=== PATIENT | male | born 1975 | race African-American/Black ===

== ENCOUNTER 2024-03-13 13:48 | Inpatient (IN) | payer OTHER, SELFPAY ==
[2024-03-13 15:00] VITALS: BP 103/84; PULSE 92; RESP 18; TEMP 36.3; O2SAT 99
[2024-03-13 15:26] VITALS: BMI 21.4
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
--- OUTSIDE RECORDS SUMMARY | 2024-03-13 16:11 | XMS_ITS | Clinical Summary ---
Author Organization [facility] Address [address] [place] [phone] Phone Care Team Providers Care President [place] Name Role Phone Physician, No Pcp Primary Care Provider Unavaila ble Allergies Active Allergy Reactions Criticality Noted Date Comments Comfort Pollen Sneezing 03/10/2024 Medications Medication Sig Dispensed Refills Start Date End Date Status divalproex (DEPAKOTE ER) 500 mg 24 hr tablet Take 1 tablet (500 mg total) by mouth at bedtime. at bedtime. 10/13/2023 Active hydrOXYzine pamoate (VISTARIL) 25 mg capsule Take 1 capsule (25 mg total) by mouth 3 (three) times a day if needed for anxiety. Active QUEtiapine (SEROquel) 25 mg tablet Take 1 tablet (25 mg total) by mouth 1 (one) time each day. Active Encounters Date Type Department Care Team Description 03/10/2024 11:01 AM EST - 03/13/2024 1:38 PM [facility] [address] [place] [phone] Eboni Robertson DO Patel, Parth B, MD Dunbar, Kevin F, MD Millay, Scot A, MD Cauchon, Matthew C, DO Durkin, Louis J, MD Kenton, Mark A, MD Severe mood disorder with psychotic features (CMS/HCC) (Primary Dx) Discharge Disposition: [facility] 01/05/2024 3:07 AM EST - 01/05/2024 1:48 PM [facility] [address] [place] [phone] Nile Hernandez MD Vatrenko, Konstantin, MD Current episode of major depressive disorder without prior episode, unspecified depression episode severity (Primary Dx); Anxiety disorder, unspecified type; Substance use disorder Discharge Disposition: Home or Self Care from Last 3 Months Medical History Medical History Date Comments Major depressive disorder, recurrent episode, mo derate (CMS/HCC) per EMR Nasal bone fx-closed 2019 per em r Social History Tobacco Use Types Packs/Day Years Used Date Smoking Tobacco: Never Assessed Sex and Gender Information Value Date Recorded Sex Assigned at Not on file Gender Identity Not on file Sexual Orientation Not on file Job Start Date Occupation Industry Not on file Not on file Not on file Obstetrics History Last Filed Vital Signs Vital Sign Reading Time Taken Comments Blood Pressure 97/56 03/13/2024 1:11 PM EST Pulse 66 03/13/2024 1:11 PM EST Temperature 36.3 ??C (97.3 ??F) 03/13/2024 1:11 PM ES T Respiratory Rate 16 03/13/2024 1:11 PM EST Oxygen Saturation 100% 03/13/2024 1:11 PM EST Inhaled Oxygen Concentration - - Weight 81.6 kg (180 lb) 03/10/2024 10:58 AM EST Height 182.9 cm (6') 03/10/2024 10:58 AM EST Body Mass Index 24.41 03/10/2024 10:58 AM EST Plan of Treatment Health Maintenance Due Date Last Done Comments DTaP,Tdap,and Td Vaccines (1 - Tdap) 02/07/1996 Hepatitis B Vaccines (1 of 3 - 19+ 3-dose series) 02/07/1996 Cholesterol Screening (Lipid Panel) 03/14/2023 11/21/2013 Colorectal Cancer Screening: Colonoscopy 03/14/2023 Depression Screening 03/14/2023 06/08/2021 HIV Screening 03/14/2023 Hepatitis C Screening 03/14/2023 Social Influencers of Health Screening 03/14/2023 COVID-19 Vaccine (2023-2 5 season) 2023 12/14/2021, 02/17/2021, 10/29/2020 Influenza Vaccine (#1) 2023 02/21/2014 HIB Vaccines Aged Out No longer eligi ble based on patient's age to complete this topic HPV Vaccines Aged Out No longer eligi ble based on patient's age to complete this topic Hepatitis A Vaccines Aged Out No long er eligible based on patient's age to complete this topic IPV Vaccines Aged Out No longer eligi ble based on patient's age to complete this topic MMR Vaccines Aged Out No longer eligi ble based on patient's age to complete this topic Meningococcal ACWY Vaccine Aged Out N o longer eligible based on patient's age to complete this topic Pneumococcal Vaccine: Pediatrics (0 to 5 Years) and At-Risk Patients (6 to 64 Years) Aged Out No longer eligible b ased on patient's age to complete this topic RSV Immunization Patients Under 20 months Aged Out No longer eligible b ased on patient's age to complete this topic Varicella Vaccines Aged Out No longer eligible based on patient's age to complete this topic Procedures Procedure Name Priority Date/Time Associated Diagnosis Comments ECG 12-LEAD STAT 03/10/2024 11:55 AM EST CBC WITH AUTO DIFFERENTIAL STAT 03/10/2024 11:26 AM EST METHADONE SCREEN, URINE STAT 03/10/2024 11:26 AM EST PHENCYCLIDINE, URINE STAT 03/10/2024 11:26 AM EST BUPRENORPHINE SCREEN, URINE STAT 03/10/2024 11:26 AM EST DRUG ABUSE SCREEN 8A PANEL, URINE STAT 03/10/2024 11:26 AM EST SALICYLATE LEVEL STAT 03/10/2024 11:2 6 AM EST ACETAMINOPHEN LEVEL STAT 03/10/2024 1 1:26 AM EST ETHANOL STAT 03/10/2024 11:26 AM EST COMPREHENSIVE METABOLIC PANEL STAT 03/10/2024 11:26 AM EST CBC AND DIFFERENTIAL STAT 03/10/2024 11:26 AM EST RAPID [id number] SCREENING, MOLECULAR STAT 01/05/2024 11:06 AM EST TIGER TOP URINE TUBE Routine 01/05/2024 5:07 AM EST EXTRA TUBES Routine 01/05/2024 5:07 AM EST METHADONE SCREEN, URINE STAT 01/05/2024 5:07 AM EST PHENCYCLIDINE, URINE STAT 01/05/2024 5:07 AM EST BUPRENORPHINE SCREEN, URINE STAT 01/05/2024 5:07 AM EST DRUG ABUSE SCREEN 8A PANEL, URINE STAT 01/05/2024 5:07 AM EST ECG 12-LEAD STAT 01/05/2024 4:25 AM EST CBC WITH AUTO DIFFERENTIAL STAT 01/05/2024 4:25 AM EST SALICYLATE LEVEL STAT 01/05/2024 4:25 AM EST ACETAMINOPHEN LEVEL STAT 01/05/2024 4 :25 AM EST ETHANOL STAT 01/05/2024 4:25 AM EST COMPREHENSIVE METABOLIC PANEL STAT 01/05/2024 4:25 AM EST CBC AND DIFFERENTIAL STAT 01/05/2024 4:25 AM EST ECG ANNOTATED 01/05/2024 from Last 3 Months Results * ECG 12 lead (03/10/2024 11:55 AM EST) Only the most recent of2 resultswithin the time period is included. Ventricular Rate ECG 84 BPM GEMUSE Atrial Rate 84 BPM GEMUSE P-R Interval 144 ms GEMUSE QRS Duration 76 ms GEMUSE Q-T Interval 380 ms GEMUSE QTc 449 ms GEMUSE P Wave [place] 83 degrees GEMUSE R [place] 71 degrees GEMUSE T [place] 57 degrees GEMUSE ECG Interpretation Normal sinus rhythm Right atrial enlargement When compared with ECG of 05-JAN-2024 04:25, No significant change was found Confirmed by CHRISTINA SU ([id number]) on 03/11/2024 8:40:37 PM GEMUSE 03/10/2024 11:5 5 AM EST 03/11/2024 8:40 PM EST Eboni Robertson DO ECG ORDERABLES GEMUSE * (ABNORMAL) Drug abuse screen 8a panel, urine (03/10/2024 11:26 AM EST) Only the most recent of2 resultswithin the time period is included. Amphetamine Screen, Ur Negative Negative LAB CHEMISTRY METHOD 5 12:25 PM [facility] Comment:Certain OTC medicati ons containing ephedrine, phenylephrine, pseudoephedrine and phenylpropanolamine can cause false positive results. Barbiturate Screen, Ur Negative Negative LAB CHEMISTRY METHOD 5 12:25 PM [facility] Benzodiazepine Screen, Ur Negative Negative LAB CHEMISTRY METHOD 5 12:25 PM [facility] Cocaine Screen, Ur Positive(A ) Negative LAB CHEMISTRY METHOD 5 12:25 PM [facility] Opiate Screen, Ur Negative Negative LAB CHEMISTRY METHOD 5 12:25 PM [facility] Cannabinoid (THC) Screen, Ur Positive(A ) Negative LAB CHEMISTRY METHOD 5 12:25 PM [facility] Comment:Specimens from patie nts taking pantoprazole sodium (Protonix) have been shown to produce false positive results. Oxycodone Screen, Ur Negative Negative LAB CHEMISTRY METHOD 5 12:25 PM [facility] Fentanyl, Ur Negative Negative LAB CHEMISTRY METHOD 5 12:25 PM [facility] Urine Urine specimen obtained by clean catch procedure / Unknown Non-blood Collection / Unknown 03/10/2024 11:26 AM EST 03/10/2024 11:57 AM EST Narrative [facility] - 03/10/2024 12:25 PM EST Assay cutoffs: Amphetamines ? 1000 ng/mL Barbiturates ?200 ng/mL Benzodiazepines ?? 200 ng/mL Cocaine ? 300 ng/mL Fentanyl ?1 ng/mL Opiates ? 300 ng/mL Oxycodone ? 100 ng/mL THC ?50 ng/mL Semi-quantitative assay for screening purposes only. Unconfirmed screening result should not be used for non-medical purposes. *ALTERNATE METHOD CONFIRMATION DONE UPON REQUEST ONLY* Eboni Robertson DO LAB URINE ORDERAB LES Performing Organization Address [facility] de Phone Number [facility] [address] [place] [address], * Buprenorphine screen, urine (03/10/2024 11:26 AM EST) Only the most recent of2 resultswithin the time period is included. Buprenorphine Screen Urine Negative Negative LAB CHEMISTRY METHOD 03/10/2024 12:25 PM EST [facility] Urine Urine specimen obtained by clean catch procedure / Unknown Non-blood Collection / Unknown 03/10/2024 11:26 AM EST 03/10/2024 11:57 AM EST Narrative [facility] - 03/10/2024 12:25 PM EST Assay cutoff 5 ng/mL Semi-quantitative assay for screening purposes only. Unconfirmed screening result should not be used for non-medical purposes. *ALTERNATE METHOD CONFIRMATION DONE UPON REQUEST ONLY* Eboni Robertson DO LAB URINE ORDERAB LES Performing Organization Address [facility]/ZIP Co de Phone Number [facility] [address] [place] [address], * Methadone, urine (03/10/2024 11:26 AM EST) Only the most recent of2 resultswithin the time period is included. [facility] Methadone Screen, Urine Negative Negative LAB CHEMISTRY METHOD 03/10/2024 12:25 PM [facility] Comment: Assay cutoff 300 ng/mL Semi-quantitative assay for screening purposes only. Unconfirmed screening result should not be used for non-medical purposes. *ALTERNATE METHOD CONFIRMATION DONE UPON REQUEST ONLY* Urine Urine specimen obtained by clean catch procedure / Unknown Non-blood Collection / Unknown 03/10/2024 11:26 AM EST 03/10/2024 11:57 AM EST Eboni Robertson DO LAB URINE ORDERAB LES [facility] [address] [place] [address], [place] [phone] * (ABNORMAL) CBC auto differential (03/10/2024 11:26 AM EST) Only the most recent of2 resultswithin the time period is included. [facility] WBC 8.5 4.8 - 10.8 K/Health system LAB HEMETOLOGY METHOD 03/10/2024 12:32 PM [facility] RBC 4.20(L) 4.50 - 5.50 M/Health system LAB HEMETOLOGY METHOD 03/10/2024 12:32 PM [facility] Hemoglobin 12.9(L) 13.5 - 17.5 g/dL LAB HEMETOLOGY METHOD 03/10/2024 12:32 PM [facility] Hematocrit 38.9(L) 42.0 - 54.0 % LAB HEMETOLOGY METHOD 03/10/2024 12:32 PM [facility] MCV 93.7 79.0 - 98.0 FL LAB HEMETOLOGY METHOD 03/10/2024 12:32 PM [facility] MCH 31.1 27.0 - 32.0 pcg LAB HEMETOLOGY METHOD 03/10/2024 12:32 PM [facility] MCHC 33.2 32.0 - 37.0 g/dL LAB HEMETOLOGY METHOD 03/10/2024 12:32 PM [facility] RDW 13.3 11.0 - 15.0 % LAB HEMETOLOGY METHOD 03/10/2024 12:32 PM [facility] Platelets 186 130 - 400 K/mcL LAB HEMETOLOGY METHOD 03/10/2024 12:32 PM [facility] MPV 10.3 7.0 - 11.0 FL LAB HEMETOLOGY METHOD 03/10/2024 12:32 PM [facility] NRBC 0.0 <1.0 % LAB HEMETOLOGY METHOD 03/10/2024 12:32 PM [facility] NRBC Absolute 0.00 <0.10 K/mcL LAB HEMETOLOGY METHOD 03/10/2024 12:32 PM [facility] Neutrophils Relative 78.9 % LAB HEMETOLOGY METHOD 03/10/2024 12:32 PM [facility] Lymphocytes Relative 15.0 % LAB HEMETOLOGY METHOD 03/10/2024 12:32 PM [facility] Monocytes Relative 4.6 % LAB HEMETOLOGY METHOD 03/10/2024 12:32 PM [facility] Eosinophils Relative 0.7 % LAB HEMETOLOGY METHOD 03/10/2024 12:32 PM [facility] Basophils Relative 0.6 % LAB HEMETOLOGY METHOD 03/10/2024 12:32 PM [facility] Immature Granulocytes Relative 0.2 % LAB HEMETOLOGY METHOD 03/10/2024 12:32 PM EST [facility] Neutrophils Absolute 6.73 1.50 - 7.00 K/Health system LAB HEMETOLOGY METHOD 03/10/2024 12:32 PM EST [facility] Lymphocytes Absolute 1.28 1.00 - 5.00 K/mcL LAB HEMETOLOGY METHOD 03/10/2024 12:32 PM [facility] Monocytes Absolute 0.39 0.20 - 1.00 K/mcL LAB HEMETOLOGY METHOD 03/10/2024 12:32 PM EST [facility] Eosinophils Absolute 0.06 0.00 - 0.50 K/mcL LAB HEMETOLOGY METHOD 03/10/2024 12:32 PM [facility] Basophils Absolute 0.05 0.00 - 0.20 K/mcL LAB HEMETOLOGY METHOD 03/10/2024 12:32 PM [facility] Immature Granulocytes Absolute 0.02 0.00 - 0.03 K/Health system LAB HEMETOLOGY METHOD 03/10/2024 12:32 PM [facility] Blood Venous blood specimen / Unknown Venipuncture / Unknown 03/10/2024 11:26 AM EST 03/10/2024 11:57 AM EST Eboni Armendariz Robertson DO LAB BLOOD ORDERAB LES [facility] [address] [place] [address], * Phencyclidine, urine (03/10/2024 11:26 AM EST) Only the most recent of2 resultswithin the time period is included. PCP Scrn, Ur Negative Negative LAB CHEMISTRY METHOD 03/10/2024 12:25 PM [facility] Comment: Assay cutoff 25 ng/mL Semi-quantitative assay for screening purposes only. Unconfirmed screening result should not be used for non-medical purposes. *ALTERNATE METHOD CONFIRMATION DONE UPON REQUEST ONLY* Urine Urine specimen obtained by clean catch procedure / Unknown Non-blood Collection / Unknown 03/10/2024 11:26 AM EST 03/10/2024 11:57 AM EST [facility] URINE ORDERAB LES Performing Organization Address City/[facility]/ZIP Co de Phone Number [facility] [address] [place] [address], * Ethanol (03/10/2024 11:26 AM EST) Only the most recent of2 resultswithin the time period is included. Ethanol Level <3 0 - 10 mg/dL LAB CHEMISTRY METHOD 03/10/2024 12:25 PM EST [facility] Blood Venous blood specimen / Unknown Venipuncture / Unknown 03/10/2024 11:26 AM EST 03/10/2024 11:57 AM EST [facility] BLOOD ORDERAB LES Performing Organization Address [facility] de Phone Number [facility] [address] [place] [address], * (ABNORMAL) Acetaminophen level (03/10/2024 11:26 AM EST) Only the most recent of2 resultswithin the time period is included. Acetaminophen Level <2.0(L) 10.0 - 30.0 mcg/mL LAB CHEMISTRY METHOD 03/10/2024 12:38 PM EST [facility] Blood Venous blood specimen / Unknown Venipuncture / Unknown 03/10/2024 11:26 AM EST 03/10/2024 11:57 AM EST [facility] BLOOD ORDERAB LES Performing Organization Address [facility] Co de Phone Number [facility] [address] [place] [address], * (ABNORMAL) Salicylate level (03/10/2024 11:26 AM EST) Only the most recent of2 resultswithin the time period is included. Pathologist [facility] Salicylate Level 1.8(L) 2.0 - 29.0 mg/dL LAB CHEMISTRY METHOD 03/10/2024 12:25 PM [facility] Blood Venous blood specimen / Unknown Venipuncture / Unknown 03/10/2024 11:26 AM EST 03/10/2024 11:57 AM EST Eboni Robertson DO LAB BLOOD ORDERAB LES [facility] [address] [place] [address], * (ABNORMAL) Comprehensive metabolic panel (03/10/2024 11:26 AM EST) Only the most recent of2 resultswithin the time period is included. [facility] Sodium 136 133 - 145 mmol/L LAB CHEMISTRY METHOD 03/10/2024 1:02 PM [facility] Potassium 4.1 3.5 - 5.5 mmol/L LAB CHEMISTRY METHOD 03/10/2024 1:02 PM [facility] Chloride 106 96 - 110 mmol/L LAB CHEMISTRY METHOD 03/10/2024 1:02 PM [facility] CO2 26 21 - 32 mmol/L LAB CHEMISTRY METHOD 03/10/2024 1:02 PM [facility] Anion Gap 4 3 - 11 LAB CHEMISTRY METHOD 03/10/2024 1:02 PM [facility] Glucose 116(H) 70 - 100 mg/dL LAB CHEMISTRY METHOD 03/10/2024 1:02 PM [facility] BUN 30(H) 5 - 25 mg/dL LAB CHEMISTRY METHOD 03/10/2024 1:02 PM [facility] Comment:Results verified by repeat testing Creatinine 1.31(H) 0.70 - 1.30 mg/dL LAB CHEMISTRY METHOD 03/10/2024 1:02 PM [facility] eGFR 68 >=60 mL/min/1. 73m2 LAB CHEMISTRY METHOD 03/10/2024 1:02 PM [facility] Comment:Calculation based on the??Chronic Kidney Disease Epidemiology Collaboration (CKD-EPI) equation refit??without adjustment for race. BUN/Creatinine Ratio 22.9 LAB CHEMISTRY METHOD 03/10/2024 1:02 PM [facility] Calcium 8.8 8.5 - 10.5 mg/dL LAB CHEMISTRY METHOD 03/10/2024 1:02 PM [facility] AST (SGOT) 23 10 - 42 unit/L LAB CHEMISTRY METHOD 03/10/2024 1:02 PM [facility] ALT (SGPT) 27 10 - 60 unit/L LAB CHEMISTRY METHOD 03/10/2024 1:02 PM [facility] Alkaline Phosphatase 66 42 - 121 unit/L LAB CHEMISTRY METHOD 03/10/2024 1:02 PM [facility] Total Protein 7.1 6.0 - 8.0 g/dL LAB CHEMISTRY METHOD 03/10/2024 1:02 PM [facility] Albumin 4.3 3.2 - 5.0 g/dL LAB CHEMISTRY METHOD 03/10/2024 1:02 PM [facility] Total Bilirubin 0.5 0.0 - 1.4 mg/dL LAB CHEMISTRY METHOD 03/10/2024 1:02 PM [facility] Blood Venous blood specimen / Unknown Venipuncture / Unknown 03/10/2024 11:26 AM EST 03/10/2024 11:57 AM EST Eboni Robertson DO LAB BLOOD ORDERAB LES [facility] [address] [place] [address], * Rapid [id number], molecular (01/05/2024 11:06 AM EST) [facility] SARS-COV-2 Screen Not Detected Not Detected METHOD [id number] 01/05/2024 11:33 AM EST [facility] Swab Both anterior nares / Unknown Non-blood Collection / Unknown 01/05/2024 11:06 AM EST 01/05/2024 11:08 AM EST Tommy Pham MD LAB MICROBIOLOGY - GENERAL ORDERABLES Performing Organization Address City/[facility]/ZIP Co de Phone Number [facility] [address] [place] [address], * Carnation top urine tube (01/05/2024 5:07 AM EST) [facility] Extra Tube Hold for add-ons. 01/05/2024 7:01 AM EST [facility] Comment:Auto resulted. Urine Urine specimen obtained by clean catch procedure / Unknown 01/05/2024 5:07 AM EST 01/05/2024 5:30 AM EST Nile Hernandez MD LAB URINE ORDERABLES Performing Organization Address City/[facility]/ZIP Co de Phone Number [facility] [address] [place] [address], * ECG-Annotated (01/05/2024) Provider Onmalina CRESPO ECG ORDERABLES from Last 3 Months Care Teams President [place] Relationship Specialty Start Date End Date Physician, No Pcp PCP - General 01/05/24
--- OUTSIDE RECORDS SUMMARY | 2024-03-13 16:11 | XMS_ITS | Clinical Summary ---
Author Organization [facility] Address [address] [place] [address] Care Team Providers Care Forms Examiner Name Role Phone Laine Melvin Primary Care Provider [phone] Source Comments PLEASE NOTE, if this patient is a minor, it may be UNLAWFUL to discuss sensitive information that is contained in these records (such as FAMILY PLANNING, MENTAL HEALTH or SUBSTANCE ABUSE) with the minor patient's parent or other person without the patient's specific authorization.[facility] Allergies No known active allergies Medications sertraline (ZOLOFT) 25 mg tabletIndication s:Anxiety Take 1 Tablet by mouth once daily 30 Tablet 1 06/08/2021 Active Active Problems Problem Noted Date Diagnosed Date History of suicidal ideation 05/11/2022 Overview (05/11/2022): [facility] 04/2022 Anxiety 06/08/2021 Crushing injury of right index finger 08/08/2017 Overview (08/08/2017): [facility] Diagnostic Imaging Department July Nondisplaced fracture at the tuft of the index finger distal phalange with overlying soft tissue swelling. trauma 07/17/2017 Overview (07/17/2017): [facility]-07/12/17 FINDINGS: Visualized portion of the brain is better evaluated on the dedicated CT head.. There is mild straightening of the cervical spine. The vertebral body heights are maintained. No acute fracture or subluxation is identified. Normal alignment of the facet joints. No prevertebral soft tissue swelling. Slight increased density in the ligaments at C1-C2 likely related to mild calcification. There is normal alignment of the lateral masses of C1 with the occipital condyles and the lateral masses of C2. At C3-C4, mild asymmetric disc bulging to the right. Mild bilateral neural foraminal narrowing at C5-C6. Subtle ligamentous calcification along the posterior most aspect of C5 vertebral body. The epiglottis is within normal limits. No cervical lymphadenopathy. Subcentimeter bilateral cervical lymph nodes. IMPRESSION: No acute fracture or subluxation of the cervical spine. [facility]-facial trauma IMPRESSION: Comminuted fracture of bilateral nasal bones, slightly more displaced on the right. Surrounding soft tissue swelling. [facility]-ct brain IMPRESSION: No acute intracranial hemorrhage. Mild parenchymal volume loss and nonspecific white matter changes. Depression 02/21/2014 Chronic low back pain 02/21/2014 Encounters Date Type Department Care Team Description 02/20/2024 Interim Notes [address] [place] [address] Elmira Smith MA from Last 3 Months Immunizations Name Administration Dates Next Due INFLUENZA, SEASONAL, INJECTABLE 02/21/2014 Family History Medical History Relation Name Comments Arthritis Father Diabetes Maternal Aunt Diabetes Mother Hypertension Mother Relation Name Status Comments Brother Alive Father Alive Maternal Aunt Alive Mother Alive Sister Alive Social History Tobacco Use Types Packs/Day Years Used Date Smoking Tobacco: Every Day Cigarettes Alcohol Use Standard Drinks/Week Comments Yes 0 (1 standard drink = 0.6 oz pur e alcohol) special occasion per patient Social Connections Answer Date Recorded Connectedness 0 11/01/2023 Financial Resource Strain Answer Date R ecorded Financial Resource Strain 0 2019 Stress Answer Date Recorded Stress 0 07/22/2019 Physical Activity Answer Date Recorded Physical Activity 0 07/22/2019 Food Insecurity Answer Date Recorded Food 0 11/09/2023 Transportation Needs Answer Date Record ed Transportation 0 07/22/2019 Housing Stability Answer Date Recorded Housing 0 07/22/2019 Safety and Environment Answer Date Jeff rded Safety 0 07/22/2019 Utilities Answer Date Recorded Utilities 0 07/22/2019 Employment Answer Date Recorded Stress 0 11/01/2023 Sex and Gender Information Value Date Recorded Sex Assigned at Not on file Legal Sex Male 11:36 AM PDT Gender Identity Not on file Sexual Orientation Not on file Last Filed Vital Signs Vital Sign Reading Time Taken Comments Blood Pressure 118/80 02/21/2014 10:57 AM EST Pulse 72 02/21/2014 10:57 AM EST Temperature 36.8 ??C (98.3 ??F) 02/21/2014 10:[address] Respiratory Rate 16 02/21/2014 10:57 AM EST Oxygen Saturation - - Inhaled Oxygen Concentration - - Weight 68 kg (150 lb) 02/21/2014 10:57 AM EST Height 180.3 cm (5' 11 ) 02/21/2014 10:57 AM EST Body Mass Index 20.92 02/21/2014 10:57 AM EST Plan of Treatment Upcoming Encounters Date Type Department Care Team (Late st Contact Info) Description 05/17/2024 10:00 AM EDT Office Visit [facility] [place] [id number] Darrell Morrell MD [address] [place] [address] Health Maintenance Due Date Last Done Comments Hepatitis C Screening 1977 Tobacco Cessation Counseling (#4) 1977 01/22/2014, 12/31/2013, 11/27/2013 Tobacco Screening 1977 HIV Screening 02/07/1992 Medicare Annual Wellness Visit 1995 Imm-DTaP/Tdap/Td (1 - Tdap) 02/07/1996 Imm-Hepatitis B (1 of 3 - 19 + 3-dose series) 02/07/1996 Imm-Pneumococcal (1 of 2 - PCV) 02/07/1996 Annual Preventive Care Visit 02/21/2015 02/21/2014 Hypertension Screening (#1) 02/21/2015 02/21/2014 Diabetes Screening 11/21/2016 11/21/2013 Lipid Screening 11/21/2018 11/21/2013 Depression Monitoring 09/07/2021 06/08/2021 CT Colonography 2022 Colonoscopy 2022 Colorectal Cancer Screening 2022 FIT/gFOBT 2022 Fecal DNA 2022 Flexible Sigmoidoscopy 2022 [id number] ( season) 2023 12/14/2021, 02/17/2021, 10/29/2020 Imm-Influenza (#1) 2023 02/21/2014 Alcohol and Drug Screen 02/14/2024 06/08/2021 Procedures Procedure Name Priority Date/Time Associated Diagnosis Comments COMPREHENSIVE METABOLIC PANEL Routine 11/21/2013 11:35 AM EDT Family history of diabetes mellitus LIPID PANEL Routine 11/21/2013 11:35 AM EDT Family history of diabetes mellitus from Last 3 Months or Most Recently Relevant to Health Maintenance Results * LIPID PANEL (11/21/2013 11:35 AM EDT) CHOLESTEROL 131 0 - 200 mg/dL [facility] TRIGLYCERIDES 63 0 - 150 mg/dL [facility] HDL CHOLESTEROL 48 >40 mg/dL [facility] LDL CALCULATED 71 0 - 100 mg/dL [facility] TC-HDLC RATIO 2.7 0 - 4.4 mg/dL [facility] Blood specimen (specimen) Blood / Unknown 11/21/2013 11:35 AM EDT 11/21/2013 12:52 PM EDT Narrative [facility] - 11/21/2013 3:38 [place] [address] PT ID [id number] ORD# [id number] us Darrell Morrell MD LAB - [place] [address], * COMPRE METAB PANEL (11/21/2013 11:35 AM EDT) GLUCOSE 89 70 - 100 mg/dL [facility] Comment:Reference range appl icable to fasting specimens only BUN 14 5 - 25 mg/dL [facility] CREAT 1.20 0.7 - 1.3 mg/dL [facility] GLOMERULAR FILTRATION RATE > 60 [facility] Comment: If patient is -Chinese, multiply result by 1.21 Chronic Kidney Disease: < 60 ml/min/1.73 square meters Kidney Failure: < 15 ml/min/1.73 square meters SODIUM 143 133 - 145 mEq/L [facility] POTASSIUM 4.2 3.5 - 5.5 mEq/L [facility] CHLORIDE 106 96 - 110 mEq/L [facility] CO2 27 21 - 32 mEq/L [facility] ANION GAP 10 3 - 11 [facility] CALCIUM 8.7 8.5 - 10.5 mg/dL [facility] TOTAL PROTEIN 7.0 6.0 - 8.0 G/dL [facility] ALBUMIN 4.4 3.2 - 5.0 G/dL [facility] BILI, TOTAL 0.6 0.0 - 1.4 mg/dL [facility] SGOT 21 10 - 42 U/L [facility] SGPT 12 10 - 60 U/L [facility] ALK PHOS 48 42 - 121 U/L [facility] Blood specimen (specimen) Blood / Unknown 11/21/2013 11:35 AM EDT 11/21/2013 12:52 PM EDT [facility] - 11/21/2013 3:38 PM EDT [facility] [address] [place] [address] PT ID [id number] ORD# [id number] us Darrell Morrell MD LAB - BLOOD DRAW Final Result [facility] [address] [place] [address], from Last 3 Months or Most Recently Relevant to Health Maintenance Insurance [place] [facility] [place] [address] [address] Member Subscriber Plan / Payer ( fective 2020-Present) Name:Jesus Manuel Hurley Relation to Subscriber:Self Name:Jesus Manuel Hurley Payer ID:[id number] Group ID:Not on file Type:Indemnity Address: [address] [place] [address] Care Teams Forms Examiner Relationship Specialty Start Date End Date Laine Melvin PA [facility] [place] [address] PCP - General Primary Care 07/05/23
--- OUTSIDE RECORDS SUMMARY | 2024-03-13 16:11 | XMS_ITS | Patient Health Record ---
Author Organization [facility] Address [address], [place] [id number] Care Team Providers Care Spray Machine Loader Name Role Phone No, PCP Primary Care Provider Houston Manriquez Unavailable [phone] Reason For Referral No Information Plan Of Treatment No Information Insurance Providers Payer Name Payer Address Payer Phone Subscriber Number Group Number Insured Name Patient Relationship to Insured Coverage Start Date Coverage End Date [place] [address] [place] [address] [id number] Jesus Manuel Hurley Self - patient is the insured 3
--- OUTSIDE RECORDS SUMMARY | 2024-03-13 16:11 | XMS_ITS | Encounter Summary ---
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 03/10/2024 11:26 AM EST 03/10/2024 11:57 AM EST Eboni Nicholson LAB BLOOD ORDERAB LES Performing Organization Address [facility]/ZIP Co de Phone Number [facility] [address] [place] [address], [place] [phone] * Ethanol (03/10/2024 11:26 AM EST) Ethanol Level <3 0 - 10 mg/dL LAB CHEMISTRY METHOD 03/10/2024 12:25 PM EST [facility] Blood Venous blood specimen / Unknown Venipuncture / Unknown 03/10/2024 11:26 AM EST 03/10/2024 11:57 AM EST Eboni Nicholson LAB BLOOD ORDERAB LES Performing Organization Address City/[facility]/ZIP Co de Phone Number [facility] [address] [place] [address], [place] [phone] * (ABNORMAL) Comprehensive metabolic panel (03/10/2024 11:26 AM EST) Sodium 136 133 - 145 mmol/L LAB CHEMISTRY METHOD 03/10/2024 1:02 PM [facility] Potassium 4.1 3.5 - 5.5 mmol/L LAB CHEMISTRY METHOD 03/10/2024 1:02 PM [facility] Chloride 106 96 - 110 mmol/L LAB CHEMISTRY METHOD 03/10/2024 1:02 PM [facility] CO2 26 21 - 32 mmol/L LAB CHEMISTRY METHOD 03/10/2024 1:02 PM [facility] Anion Gap 4 3 - 11 LAB CHEMISTRY METHOD 03/10/2024 1:02 PM [facility] Glucose 116(H) 70 - 100 mg/dL LAB CHEMISTRY METHOD 03/10/2024 1:02 PM [facility] BUN 30(H) 5 - 25 mg/dL LAB CHEMISTRY METHOD 03/10/2024 1:02 PM [facility] LAB Comment:Results verified by repeat testing Creatinine 1.31(H) 0.70 - 1.30 mg/dL LAB CHEMISTRY METHOD 03/10/2024 1:02 PM [facility] eGFR 68 >=60 mL/min/1. 73m2 LAB CHEMISTRY METHOD 03/10/2024 1:02 PM [facility] LAB Comment:Calculation based on the??Chronic Kidney Disease Epidemiology Collaboration (CKD-EPI) equation refit??without adjustment for race. BUN/Creatinine Ratio 22.9 LAB CHEMISTRY METHOD 03/10/2024 1:02 PM [facility] Calcium 8.8 8.5 - 10.5 mg/dL LAB CHEMISTRY METHOD 03/10/2024 1:02 PM [facility] AST (SGOT) 23 10 - 42 unit/L LAB CHEMISTRY METHOD 03/10/2024 1:02 PM [facility] ALT (SGPT) 27 10 - 60 unit/L LAB CHEMISTRY METHOD 03/10/2024 1:02 PM EST [facility] Alkaline Phosphatase 66 42 - 121 unit/L LAB CHEMISTRY METHOD 03/10/2024 1:02 PM [facility] Total Protein 7.1 6.0 - 8.0 g/dL LAB CHEMISTRY METHOD 03/10/2024 1:02 PM EST [facility] Albumin 4.3 3.2 - 5.0 g/dL LAB CHEMISTRY METHOD 03/10/2024 1:02 PM [facility] Total Bilirubin 0.5 0.0 - 1.4 mg/dL LAB CHEMISTRY METHOD 03/10/2024 1:02 PM [facility] Blood Venous blood specimen / Unknown Venipuncture / Unknown 03/10/2024 11:26 AM EST 03/10/2024 11:57 AM EST Eboni Armendariz Nicholson DO LAB BLOOD ORDERAB LES [facility] [address] [place] [address], documented in this encounter Visit Diagnoses Diagnosis Severe mood disorder with psychotic features (CMS/HCC)- Primary Other specified episodic mood disorder documented in this encounter Administered Medications Inactive Administered Medications - up to 3 most recent administrations Medication Order MAR Action Action Date Dose Rate Site divalproex (DEPAKOTE ER) 24 hr tablet 500 mg 500 mg, oral, Nightly, First dose on Mon03/12/24 at 2100, HAZARDOUS Drug Precautions - Low Risk (Category A/NIOSH Group 3) Reproductive Risk Only: - Do NOT split, crush, or open dosage units - Single pair of ASTM standard [id number] certified chemotherapy gloves - Eye protection (goggles or face shield) required only with a potential for facial contact (i.e. concern for spitting or vomiting of the dose during or after administration) Given 03/12/2024 8:57 PM EST 500 mg haloperidol lactate (HALDOL) 5 mg/mL injection - ADS Override Pull Starting on Mon03/11/24 at 1334, For 1 dose, Created by cabinet override May be ordered via either intramuscular or intravenous route. If ordered IV, maximum of 5 mg/minute. haloperidol lactate (HALDOL) injection 5 mg 5 mg, intramuscular, Once, On Mon03/11/24 at 1336, For 1 dose, May be ordered via either intramuscular or intravenous route. If ordered IV, maximum of 5 mg/minute. Given 03/11/2024 1:30 PM EST 5 mg Right Anterior Thigh LORazepam (ATIVAN) 2 mg/mL injection - ADS Override Pull Starting on Mon03/11/24 at 1335, For 1 dose, Created by cabinet override Prior to IV use, lorazepam injection should be DILUTED with an equal volume of compatible solution; Rate of administration should NOT exceed 2 mg/min. LORazepam (ATIVAN) injection 2 mg 2 mg, intramuscular, Once, On Mon03/11/24 at 1336, For 1 dose, Prior to IV use, lorazepam injection should be DILUTED with an equal volume of compatible solution; Rate of administration should NOT exceed 2 mg/min. Given 03/11/2024 1:49 PM EST 2 mg Right Anterior Thigh LORazepam (ATIVAN) injection 2 mg 2 mg, intramuscular, Once, On Mon03/11/24 at 1727, For 1 dose, Prior to IV use, lorazepam injection should be DILUTED with an equal volume of compatible solution; Rate of administration should NOT exceed 2 mg/min. Given 03/11/2024 5:41 PM EST 2 mg Right Deltoid OLANZapine (ZyPREXA) injection 5 mg 5 mg, intramuscular, Once as needed, agitation, Starting on Mon03/11/24 at 1722, For 1 dose, Reconstitute 10 mg vial with 2.1 mL SWFI. Resulting solution is ~5 mg/mL. QUEtiapine (SEROquel) tablet 50 mg 50 mg, oral, Nightly, First dose on Mon03/12/24 at 2100 Given 03/12/2024 8:57 PM EST 50 mg documented in this encounter Active and Recently Administered Medications Times are shown in EST. Scheduled Medication Order 03/11/2024 03/12/2024 03/13/2024 diphenhydrAMINE (BENADRYL) injection 25 mg 25 mg, intramuscular, Once, On Mon03/11/24 at 1336, For 1 dose 1408 (Not Given - Provider: Abbey Middleton RN - Reason: Other - Comment: hold per Dr Nicholson as pt becoming more sedate)2034 (Not Given - Provider: April Malhotra RN - Reason: Other) divalproex (DEPAKOTE ER) 24 hr tablet 500 mg 500 mg, oral, Nightly, First dose on Mon03/12/24 at 2100, HAZARDOUS Drug Precautions - Low Risk (Category A/NIOSH Group 3) Reproductive Risk Only: - Do NOT split, crush, or open dosage units - Single pair of ASTM standard [id number] certified chemotherapy gloves - Eye protection (goggles or face shield) required only with a potential for facial contact (i.e. concern for spitting or vomiting of the dose during or after administration) 2056 (Given - Provider: Ruby Orlando, RL) haloperidol lactate (HALDOL) injection 5 mg (COMPLETED) 5 mg, intramuscular, Once, On Mon03/11/24 at 1336, For 1 dose, May be ordered via either intramuscular or intravenous route. If ordered IV, maximum of 5 mg/minute. 1330 (Given - Provider: Abbey Middleton RN - Comment: emergency)1336 (Due) LORazepam (ATIVAN) injection 2 mg (COMPLETED) 2 mg, intramuscular, Once, On Mon03/11/24 at 1336, For 1 dose, Prior to IV use, lorazepam injection should be DILUTED with an equal volume of compatible solution; Rate of administration should NOT exceed 2 mg/min. 1336 (Due)1349 (Given - Provider: Abbey Middleton RN - Comment: emergency) LORazepam (ATIVAN) injection 2 mg (COMPLETED) 2 mg, intramuscular, Once, On Mon03/11/24 at 1727, For 1 dose, Prior to IV use, lorazepam injection should be DILUTED with an equal volume of compatible solution; Rate of administration should NOT exceed 2 mg/min. 1741 (Given - Provider: Mai Horvath RN) QUEtiapine (SEROquel) tablet 50 mg 50 mg, oral, Nightly, First dose on Mon03/12/24 at 2100 2056 (Given - Provider: Ruby Orlando RN) PRN Medication Order 03/11/2024 03/12/2024 03/13/2024 OLANZapine (ZyPREXA) injection 5 mg 5 mg, intramuscular, Once as needed, agitation, Starting on 03/11/24 at 1722, For 1 dose, Reconstitute 10 mg vial with 2.1 mL SWFI. Resulting solution is ~5 mg/mL. documented in this encounter Orders Medications Ordered That Skyler ht Not Have Been Administered Count Last Ordered Date First Ordered Date diphenhydrAMINE (BENADRYL) injection 25 mg 1 03/11/2024 haloperidol lactate (HALDOL) 5 mg/mL injection - ADS Override Pull 1 03/11/2024 OLANZapine (ZyPREXA) injection 5 mg 1 03/11 Consult Count Last Ordered Date First Orde red Date IP CONSULT TO BULLET SWAGING MACHINE ADJUSTER 1 03/10/2024 documented in this encounter Care Teams Shot Polisher Relationship Specialty Start Date End Date Physician, No Pcp PCP - General 01/05/24 documented as of this encounter
--- OUTSIDE RECORDS SUMMARY | 2024-03-13 16:11 | XMS_ITS | Encounter Summary ---
Author Organization [facility] Address [address] [place] [address] Care Team Providers Care Automatic Spreader Operator Name Role Phone Laine Melvin Primary Care Provider [phone] Reason for Visit * Reason Comments Transportation Encounter Details Date Type Department Care Team (Late st Contact Info) Description 02/20/2024 Interim Notes [facility] [address] [place] [phone] Elmira Smith MA [address] [place], [place] [phone] Social History Tobacco Use Types Packs/Day Years [...] on file Sexual Orientation Not on file documented as of this encounter Progress Notes * Elmira Dennison MA - 02/20/2024 9:54 AM EST Tried to submit PT1 for [facility] for pt. Website states member is not eligible for transportation documented in this encounter Plan of Treatment Upcoming Encounters Date Type Department Care Team (Late st Contact Info) Description 05/17/2024 10:00 AM EDT Office Visit [facility] [address] [place] [phone] Darrell Morrell MD [address] [facility] [place] [address] documented as of this encounter Visit Diagnoses Not on filedocumented in this encounter Additional Health Concerns Assessment Noted Time PHQ-9 Depression Total Score: 0 06/09/19 22 8:52 AM PDT documented as of this encounter Care Teams Automatic Spreader Operator Relationship Specialty Start Date End Date Laine Melvin PA [address] [place] [address] PCP - General Primary Care 07/05/23 documented as of this encounter
[2024-03-13 19:20] VITALS: BP 108/57; PULSE 69; RESP 16; TEMP 36.9; O2SAT 97
[2024-03-13 19:38] LABS: Alanine Aminotransferase 18 U/L (0-40); Albumin Level 3.8 g/dL (3.5-5.0); Alkaline Phosphatase 53 U/L (39-117); Anion Gap 9 (12-20); Aspartate Amino Transferase 25 U/L (5-37); Bilirubin Total 0.2 mg/dL (0.0-1.0); Blood Urea Nitrogen 20 mg/dL (9-16); Calcium 7.9 mg/dL (8.4-10.2); Carbon Dioxide 25 mmol/L (22-29); Chloride 106 mmol/L (96-108); Creatinine Clr Calc Pharmacy 80.1; Estimated Glomerular Filt Rate > 60; Glucose Random 96 mg/dL (60-115); Potassium 4.4 mmol/L (3.3-5.1); Sodium 136 mmol/L (135-145); Total Protein 6.3 g/dL (6.5-8.0)
[2024-03-13] MEDS: Nicotine Polacrilex 2 MG GUM 4 MG BUCCAL (21:30)
[2024-03-13] MEDS: traZODone HCL 50 MG TABLET PO (21:30)
[2024-03-13] MEDS: hydrOXYzine HCL 25 MG TABLET PO (21:30)
[2024-03-14 07:00] VITALS: BMI 21.7
[2024-03-14 07:38] VITALS: BP 102/65; PULSE 75; RESP 16; TEMP 36.9; O2SAT 98
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
[2024-03-14] MEDS: QUEtiapine Fumarate 25 MG TABLET PO (14:24)
[2024-03-14 19:22] VITALS: BP 145/68; PULSE 70; RESP 16; TEMP 36.4; O2SAT 100
[2024-03-14] MEDS: Divalproex Sodium ER 500 MG TAB.ER.24H PO (23:14)
[2024-03-15 07:35] VITALS: BP 106/59; PULSE 63; RESP 12; TEMP 36.8; O2SAT 97
[2024-03-15] MEDS: QUEtiapine Fumarate 25 MG TABLET PO ×2 (08:48→20:30)
[2024-03-15] MEDS: buPROPion HCl XL 150 MG TAB.ER.24H PO (08:48)
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
[2024-03-15 19:49] VITALS: BP 112/56; PULSE 68; RESP 18; TEMP 37; O2SAT 98
[2024-03-15] MEDS: traZODone HCL 50 MG TABLET PO (20:29)
[2024-03-15] MEDS: Divalproex Sodium ER 500 MG TAB.ER.24H PO (20:29)
[2024-03-15] MEDS: Nicotine Polacrilex 2 MG GUM 4 MG BUCCAL (20:38)
[2024-03-16 07:39] VITALS: BP 111/61; PULSE 59; RESP 16; TEMP 36.7; O2SAT 98
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
[2024-03-16] MEDS: buPROPion HCl XL 150 MG TAB.ER.24H PO (11:18)
[2024-03-16] MEDS: QUEtiapine Fumarate 25 MG TABLET PO ×2 (11:18→21:09)
[2024-03-16] MEDS: Acetaminophen 325 MG TABLET 650 MG PO (13:47)
[2024-03-16 19:50] VITALS: BP 103/62; PULSE 86; RESP 16; TEMP 36.4; O2SAT 100
[2024-03-16] MEDS: traZODone HCL 50 MG TABLET PO (21:09)
[2024-03-16] MEDS: hydrOXYzine HCL 25 MG TABLET PO (21:09)
[2024-03-16] MEDS: Divalproex Sodium ER 500 MG TAB.ER.24H PO (21:09)
[2024-03-16] MEDS: Nicotine Polacrilex 2 MG GUM 4 MG BUCCAL (21:10)
[2024-03-17 07:51] VITALS: BP 108/75; PULSE 69; RESP 16; TEMP 36.8; O2SAT 100
[2024-03-17] MEDS: buPROPion HCl XL 150 MG TAB.ER.24H PO (08:09)
[2024-03-17] MEDS: QUEtiapine Fumarate 25 MG TABLET PO ×2 (08:09→21:38)
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
[2024-03-17 19:00] VITALS: BP 113/69; PULSE 76; RESP 16; TEMP 36.9; O2SAT 100
[2024-03-17] MEDS: Divalproex Sodium ER 500 MG TAB.ER.24H PO (21:38)
[2024-03-17] MEDS: Nicotine Polacrilex 2 MG GUM 4 MG BUCCAL (21:42)
[2024-03-18 07:45] VITALS: BP 113/67; PULSE 60; RESP 14; TEMP 36.4; O2SAT 100
[2024-03-18] MEDS: buPROPion HCl XL 300 MG TAB.ER.24H PO (08:36)
[2024-03-18] MEDS: QUEtiapine Fumarate 25 MG TABLET PO (08:36)
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
== END 2024-03-18 10:50 | disposition home or self-care (01) | DRG 885 ==
PROVIDERS: Social Worker; Admitting Provider Psychiatry & Neurology Psychiatry; Visit Provider Psychiatry & Neurology Psychiatry
DX: F39 Unspecified mood [affective] disorder (principal); R45.851 Suicidal ideations; F17.210 Nicotine dependence, cigarettes, uncomplicated; F14.10 Cocaine abuse, uncomplicated; F12.90 Cannabis use, unspecified, uncomplicated; Z71.6 Tobacco abuse counseling; Z91.148 Patient's other noncompliance with medication regimen for other reason; Z91.51 Personal history of suicidal behavior; Z79.899 Other long term (current) drug therapy
CPT/HCPCS: 36415; 80053

== ENCOUNTER → 2024-03-13 13:48 | Outpatient (BNV) | payer OTHER, SELFPAY | PROVIDERS: Admitting Provider Psychiatry & Neurology Psychiatry; Visit Provider Psychiatry & Neurology Psychiatry | DX: F39 Unspecified mood [affective] disorder (principal); F14.10 Cocaine abuse, uncomplicated; F12.90 Cannabis use, unspecified, uncomplicated; F17.200 Nicotine dependence, unspecified, uncomplicated | CPT/HCPCS: 90792; 99231; 99232; 99239 ==

== ENCOUNTER → 2024-03-13 13:48 | Outpatient (BNV) | payer OTHER, SELFPAY | PROVIDERS: Admitting Provider Psychiatry & Neurology Psychiatry; Visit Provider Student in an Organized Health Care Education/Training Program | DX: Z00.8 Encounter for other general examination (principal) | CPT/HCPCS: 99222 ==